=== PATIENT | male | born 1990 | race Caucasian/White ===

== ENCOUNTER 2017-08-15 00:12 | Emergency (ER) | payer MEDICAID ==
[~2017-08-15] VITALS: Ht 177.8 cm; Wt 86.6 kg
[2017-08-15 00:27] VITALS: BP_SYST 143
[2017-08-15] MEDS ORDERED: LIDOCAINE 1% 10 MG/ML, 20 ML MDV INJ ONE (00:45)
[2017-08-15 01:05] VITALS: BP_SYST 143
== END 2017-08-15 01:05 | disposition home or self-care (01) ==
LOC: SED 00:12
DX: S01.81XA Laceration without foreign body of other part of head, initial encounter (principal); I10 Essential (primary) hypertension; V00.131A Fall from skateboard, initial encounter; Y93.21 Activity, ice skating; Y92.89 Other specified places as the place of occurrence of the external cause; Y99.8 Other external cause status
CPT/HCPCS: 12011; 99283; J2001

== ENCOUNTER 2017-08-22 13:20 | Emergency (ER) | payer MEDICAID ==
[~2017-08-22] VITALS: Ht 177.8 cm; Wt 86.2 kg
[2017-08-22 13:20] VITALS: BP_SYST 129
[2017-08-22 18:04] VITALS: BP_SYST 120
== END 2017-08-22 15:00 | disposition home or self-care (01) ==
LOC: SED 13:20
DX: S01.81XD Laceration without foreign body of other part of head, subsequent encounter (principal); I10 Essential (primary) hypertension; W19.XXXD Unspecified fall, subsequent encounter
CPT/HCPCS: 99281